=== PATIENT | female | born 1960 | race Caucasian/White ===

== ENCOUNTER 2017-11-11 23:03 | Emergency (ER) | payer MEDICAID ==
--- NOTE | 2017-11-12 00:38 | XRAY Report ---
EXAM: RIGHT HIP AND PELVIS RADIOGRAPHY EXAM DATE: 11/12/2017 12:24 AM. HISTORY: Fall, ecchymosis two days prior. COMPARISONS: None. TECHNIQUE: 1 view of the pelvis and 1 view of the hip. FINDINGS: Bones: Normal. No fracture or bone lesion. Joints: The bilateral hip, pubis symphysis, and sacroiliac joints are preserved. Soft Tissues: Normal. No soft tissue swelling. IMPRESSION: Normal pelvis and hip radiography. [facility] Referring Provider Line: [phone] SITE ID: [id number]
--- NOTE | 2017-11-12 00:57 | ED Physician Documentation ---
PD HPI LOWER EXT INJURY - Stated complaint Stated Complaint: RT HIP PX POST FALL - Chief complaint Chief Complaint: Trauma Ext - History obtained from History obtained from: Patient - History of Present Illness PD HPI LOW EXT INJURY LOCATION: Right, Hip Type of injury: Fall Where injury occurred: Home Timing - onset: How many days ago (2) Timing - details: Abrupt onset, Still present Improved by: Immobilization Worsened by: Moving, Palpating Similar symptoms before: No diagnosis Recently seen: Not recently seen - Additional information Additional information: Patient is a 57 year old female presenting to the emergency department for hip pain. patient states that she fell two days ago on her right hip. Patient states that there is a large bruise and the pain is persistent. Patient is trying to take care of her daughter who has had a tbi and has a broken ankle and helping her has become very difficult. Review of Systems Constitutional: denies: Fever, Chills Eyes: reports: Reviewed and negative Ears: reports: Reviewed and negative Nose: reports: Reviewed and negative Throat: reports: Reviewed and negative Cardiac: denies: Chest pain / pressure, Palpitations Respiratory: denies: Cough, Wheezing GI: denies: Nausea, Vomiting : reports: Reviewed and negative Skin: reports: Rash, Lesions Musculoskeletal: reports: Extremity pain, Joint pain, Extremity swelling, Joint swelling Neurologic: denies: Generalized weakness, Focal weakness, Numbness Psychiatric: reports: Depressed Immunocompromised: denies: Immunocompromised PD PAST MEDICAL HISTORY - Past Medical History Endocrine/Autoimmune: HyPOthyroidism 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 03/19/13 Nabumetone 750 mg PO BID 03/19/13 03/19/13 Oxycodone HCl/Acetaminophen 1 each PO QID 03/19/13 03/19/13 [Endocet 5-325 Tablet] Propranolol HCl 40 mg PO BID 03/19/13 03/19/13 Zolpidem Tartrate [Ambien] 10 mg PO HS 03/19/13 03/19/13 cephALEXin [Keflex] 500 mg PO Q6H #28 capsule 03/19/13 valACYclovir [Valtrex] 500 mg PO DAILY 03/19/13 03/19/13 - Allergies Allergies/Adverse Reactions: Allergies Allergy/AdvReac Type Severity Reaction Status Date / Time No Known Drug Allergies Allergy Verified 11/11/17 23:10 - Social History Does the pt smoke?: No Smoking Status: Never smoker Does the pt drink ETOH?: No Does the pt have substance abuse?: No - Immunizations Immunizations are current?: No - POLST Patient has POLST: No PD ED PE NORMAL - Vitals Vital signs reviewed: Yes - General General: Alert and oriented X 3, No acute distress - HEENT HEENT: Atraumatic, PERRL - Neck Neck: No bony TTP - Cardiac Cardiac: RRR - Respiratory Respiratory: No respiratory distress - Abdomen Abdomen: Non distended - Neuro Neuro: Alert and oriented X 3, No motor deficit, No sensory deficit, Normal speech PD ED PE EXPANDED - Derm Derm: Bruising (on right hip) - Extremities Extremities: Right hip (tenderness and ecchymosis of right hip) - Psych Psych: Tearful Results - Vitals Vitals: Vital Signs - 24 hr 11/11/17 11/12/17 23:10 01:22 Temperature 36.4 C L 36.4 C L Heart Rate 96 91 Respiratory 16 18 Rate Blood Pressure 157/92 H 152/88 H O2 Saturation 100 98 Oxygen O2 Source Room air - Rads (name of study) right hip x-ray Radiology: Final report received (no acute fracture or dislocation) PD MEDICAL DECISION MAKING - ED course Complexity details: reviewed old records, reviewed results, re-evaluated patient , considered differential, d/w patient ED course: Patient was seen and examined at bedside. Patient was sent for imaging. when patient returned the results were reviewed. there was no acute fracture or dislocation. patient was given ibuprofen for pain and crutches. patient required no further work up and was stable for discharge with outpatient follow up. Departure - Departure Disposition: Home, Self Care Clinical Impression: Contusion of hip, right Condition: Good Instructions: ED Contusion Hip Follow-Up: ROCHELLE VELÁZQUEZ ARNP [Primary Care Provider] - Within 3 Days Comments: Your diagnostics today were within normal limits. There is no acute fracture or dislocation. You can take motrin or tylenol as needed for pain and you should ice your wound. You should follow up with your doctor if your symptoms persist. You may return to the emergency department at any time for new, worsening or uncontrollable symptoms. Discharge Date/Time: 11/12/17 01:24
[2017-11-12 01:24] VITALS: BP 152/88
== END 2017-11-12 01:24 | disposition home or self-care (01) ==
LOC: ED 23:03
DX: S70.01XA Contusion of right hip, initial encounter (principal); W01.0XXA Fall on same level from slipping, tripping and stumbling without subsequent striking against object, initial encounter; Y92.019 Unspecified place in single-family (private) house as the place of occurrence of the external cause; E03.9 Hypothyroidism, unspecified; Z85.42 Personal history of malignant neoplasm of other parts of uterus
CPT/HCPCS: 99283

== ENCOUNTER 2018-11-23 14:23 | Outpatient (CLI) | payer MEDICAID ==
[2018-11-23 14:55] LABS: ALBUMIN 4.3 g/dL (3.2-5.5); ALBUMIN/GLOBULIN RATIO 1.3 (1.0-2.2); BILIRUBIN,TOTAL 1.1 mg/dL (0.2-1.0); CALCIUM 9.2 mg/dL (8.5-10.3); CREATININE 0.9 mg/dL (0.4-1.0); TOTAL PROTEIN 7.7 g/dL (6.7-8.2)
== END 2018-11-23 14:24 | disposition home or self-care (01) ==
LOC: LAB 14:23
PROVIDERS: ATTEND Nurse Practitioner Family
DX: E03.9 Hypothyroidism, unspecified (principal); I10 Essential (primary) hypertension
CPT/HCPCS: 36415; 80050; 80053; 84443

== ENCOUNTER 2021-08-30 07:00 | Outpatient (CLI) | payer MEDICAID ==
[2021-08-30 19:16] LABS: THYROID STIMULATING HORMONE 0.24 uIU/mL (0.34-5.60)
[2021-08-30 20:04] LABS: FREE T4 (FREE THYROXINE) 1.1 ng/dL (0.58-1.64)
== END 2021-08-30 23:59 | disposition home or self-care (01) ==
LOC: LAB 07:00
PROVIDERS: ATTEND Internal Medicine
DX: E03.9 Hypothyroidism, unspecified (principal)
CPT/HCPCS: 36415; 84439; 84443

== ENCOUNTER 2022-08-09 14:59 | Emergency (ER) | payer MEDICAID ==
--- NOTE | 2022-08-09 16:15 | XRAY Report ---
PROCEDURE: Knee 4 View RT INDICATIONS: Trauma TECHNIQUE: 3 views of the right knee(s) were acquired. COMPARISON: None. FINDINGS: Bones: Degenerative changes are present at the knee. There is a slight asymmetric depressed appearan ce of the lateral tibial plateau. No suspicious bony lesions. Soft tissues: Moderate joint effusion. No suspicious soft tissue calcifications. IMPRESSION: Moderate effusion with slight asymmetric depressed appearance of the lateral tibial plateau. This cou ld be degenerative in nature related to old injury. However, if this area demonstrates point tenderne ss, fracture cannot be excluded and CT is recommended. Reviewed by: Yu Nam MD on 08/09/2022 4:14 PM PDT Approved by: Yu Nam MD on 08/09/2022 4:14 PM PDT Station ID: [id number]
--- NOTE | 2022-08-09 16:16 | XRAY Report ---
PROCEDURE: Wrist 4 View RT INDICATIONS: Trauma TECHNIQUE: 4 views of the wrist were acquired. COMPARISON: None FINDINGS: Bones: No fractures or dislocations. No suspicious bony lesions. Scaphoid view: Scaphoid is intact. Soft tissues: No suspicious soft tissue calcifications. IMPRESSION: No fracture. No acute osseous lesion. If symptoms and/or clinical concern for pathology persists, fur ther assessment with repeat plain film radiographs (7-10 days) or advanced imaging (CT, MR, bone scan ) should be considered. Reviewed by: Azeb Laughlin MD, PhD on 08/09/2022 4:14 PM PDT Approved by: Azeb Laughlin MD, PhD on 08/09/2022 4:14 PM PDT Station ID: [id number]
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
[2022-08-09] MEDS ORDERED: oxyCODONE 5 MG TABLET PO STA (17:32)
[2022-08-09] MEDS ORDERED: KETOROLAC 15 MG/ML VIAL IVP STA (17:32)
[2022-08-09] MEDS ORDERED: KETOROLAC 30 MG/ML VIAL IM STA (17:44)
--- NOTE | 2022-08-09 19:09 | CT Report ---
PROCEDURE: LOWER EXTREMITY WO - RT INDICATIONS: knee pain post fall, tibial plateau fx. TECHNIQUE: Noncontrast 3-mm axial sections acquired from the distal tibial shaft to the talar dome, with coronal and sagittal reformats. For radiation dose reduction, the following was used: automated exposure c ontrol, adjustment of mA and/or kV according to patient size. COMPARISON: Same day right knee radiographs. FINDINGS: Image quality: Excellent. Bones: Depressed comminuted lateral tibial plateau fracture, (). No additional fracture. No disl ocation. There is tricompartmental osteophytosis. There is joint space narrowing most pronounced in t he medial compartment. Soft tissues: Suprapatellar joint effusion with lipohemarthrosis. Impression: Lateral tibial plateau fracture, type III. Reviewed by: Brayan Friedman MD on 08/09/2022 7:08 PM PDT Approved by: Brayan Friedman MD on 08/09/2022 7:08 PM PDT Station ID: [id number]
[2022-08-09] MEDS ORDERED: HYDROmorphone 1 MG/ML CARPUJECT IM STA ×2 (19:24→23:51)
[2022-08-10] MEDS ORDERED: HYDROmorphone 1 MG/ML CARPUJECT IM STA (04:37)
[2022-08-10] MEDS ORDERED: NAPROXEN 250 MG TABLET PO SCH (08:00)
[2022-08-10] MEDS: oxyCODONE 5 MG TABLET PO SCH ×4 (08:05→19:20)
[2022-08-10] MEDS: ACETAMINOPHEN 500 MG TABLET PO SCH ×4 (08:05→22:38)
--- NOTE | 2022-08-10 16:04 | ED Physician Documentation ---
ED Addendum - Addendum Addendum: 08/10/22 16:02 The patient did have difficulty with getting to the bathroom and needed assistance for balance and transfer. She was somewhat resistant for use of the crutches. Our social security specialist Louise talked with her to discuss options on prison. 1 would be attempted at home nursing but the patient states her physical layout of the house is difficult with bedroom upstairs in a bathroom downstairs. No friends or family in the area apparently. However the patient states she does not have the money available to pay for prison placement such as [facility]. The patient does have Medicaid and [facility] is looking at it as whether they could have short-term funding through the insurance. Social work is awaiting word back from the SNF to see if they might accept her short-term. Meanwhile we will have a physical therapy evaluation and see if they can help with coaching/teaching on crutches use.
[2022-08-10 18:04] LABS: BASOPHILS # (AUTO) 0.1 10^3/uL (0.0-0.1); BASOPHILS % (AUTO) 1.1 %; EOSINOPHILS # (AUTO) 0.3 10^3/uL (0.0-0.7); EOSINOPHILS % (AUTO) 4.5 %; HCT - HEMATOCRIT 26.3 % (37.0-47.0); LYMPHOCYTES # (AUTO) 1.4 10^3/uL (1.5-3.5); LYMPHOCYTES % (AUTO) 19.6 %; MEAN CORPUSCULAR HEMOGLOBIN 19.3 pg (27.0-31.0); MEAN CORPUSCULAR HGB CONC 26.6 g/dL (32.0-36.0); MEAN CORPUSCULAR VOLUME 72.7 fL (81.0-99.0); MEAN PLATELET VOLUME 9.8 fL (7.9-10.8); MONOCYTES # (AUTO) 0.6 10^3/uL (0.0-1.0); MONOCYTES % (AUTO) 7.9 %; NEUTROPHILS # (AUTO) 4.9 10^3/uL (1.5-6.6); NEUTROPHILS % (AUTO) 66.8 %; PLT - PLATELET COUNT 288 10^3/uL (130-450); RED BLOOD COUNT 3.62 10^6/uL (4.20-5.40); RED CELL DISTRIBUTION WIDTH 19.3 % (12.0-15.0); WHITE BLOOD COUNT 7.3 x10^3/uL (4.8-10.8)
[2022-08-10] MEDS ORDERED: FERROUS GLUCONATE 324 MG TABLET PO STA (18:10)
[2022-08-10 18:17] LABS: ALBUMIN/GLOBULIN RATIO 1.3 (1.0-2.2); BILIRUBIN,TOTAL 0.6 mg/dL (0.2-1.0); CALCIUM 8.9 mg/dL (8.5-10.3); CREATININE 0.8 mg/dL (0.4-1.0); POTASSIUM 3.7 mmol/L (3.5-5.0)
[2022-08-10 18:32] LABS: % IRON SATURATION 2 % (20-50); IRON 11 ug/dL (28-170); TOTAL IRON BINDING CAPACITY 486 ug/dL (250-450); TRANSFERRIN 347 mg/dL (192-382)
[2022-08-10 18:33] LABS: PLATELET ESTIMATE, MANUAL NORMAL (130-450,000) (NORMAL); PLATELET MORPHOLOGY NORMAL APPEARANCE (NORMAL); SLIDE REVIEW? Indicated
[2022-08-11] MEDS: oxyCODONE 5 MG TABLET PO SCH ×6 (00:11→20:08)
[2022-08-11 07:17] LABS: BASOPHILS # (AUTO) 0.1 10^3/uL (0.0-0.1); BASOPHILS % (AUTO) 1.1 %; EOSINOPHILS # (AUTO) 0.4 10^3/uL (0.0-0.7); EOSINOPHILS % (AUTO) 6.9 %; HCT - HEMATOCRIT 25.6 % (37.0-47.0); LYMPHOCYTES # (AUTO) 1.5 10^3/uL (1.5-3.5); LYMPHOCYTES % (AUTO) 24.6 %; MEAN CORPUSCULAR HEMOGLOBIN 19.4 pg (27.0-31.0); MEAN CORPUSCULAR HGB CONC 26.6 g/dL (32.0-36.0); MEAN CORPUSCULAR VOLUME 72.9 fL (81.0-99.0); MEAN PLATELET VOLUME 10.1 fL (7.9-10.8); MONOCYTES # (AUTO) 0.5 10^3/uL (0.0-1.0); MONOCYTES % (AUTO) 7.9 %; NEUTROPHILS # (AUTO) 3.7 10^3/uL (1.5-6.6); PLT - PLATELET COUNT 272 10^3/uL (130-450); RED BLOOD COUNT 3.51 10^6/uL (4.20-5.40); RED CELL DISTRIBUTION WIDTH 19.3 % (12.0-15.0); WHITE BLOOD COUNT 6.2 x10^3/uL (4.8-10.8)
[2022-08-11 07:24] LABS: HGB - HEMOGLOBIN 6.8 g/dL (12.0-16.0)
[2022-08-11] MEDS ORDERED: FERROUS GLUCONATE 324 MG TABLET PO SCH (08:00)
[2022-08-11] MEDS: ACETAMINOPHEN 500 MG TABLET PO SCH ×4 (10:16→20:30)
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
[2022-08-11 21:19] LABS: HCT - HEMATOCRIT 31.7 % (37.0-47.0); HGB - HEMOGLOBIN 8.8 g/dL (12.0-16.0)
--- NOTE | 2022-08-12 02:23 | ED Physician Documentation ---
ED Addendum - Addendum Addendum: 08/12/22 02:20 The patient is appearing rested and sleeping here on the overnight shift. She had received a transfusion earlier for apparent iron deficiency anemia. She has not had any stools out and no gross melena by her history. We will still obtain a guaiac and encouraged her to have a bowel movement. Deferred rectal exam at this time. Social work note states her primary insurance had declined rehab care and they are approaching Medicaid to see if that would cover. Social work had not heard back from the [facility] SN[facility] at the time they left this past afternoon. Presumably will help hear back this coming morning. If Medicaid declines her for rehab/acute SNF care, then we really need to look at discharge with crutches and/or walker. At this point it is an isolated tibial plateau fracture that is unlikely to need surgical repair but will need 4 to 6 weeks in a knee brace and crutches versus walker. She will need to maneuver with this at home. Pain medications are being provided.
[2022-08-12] MEDS: oxyCODONE 5 MG TABLET PO PRN ×2 (02:49→08:51)
[2022-08-12 03:25] VITALS: BP 201/77
[2022-08-12] MEDS: ACETAMINOPHEN 500 MG TABLET PO SCH ×2 (08:51→13:45)
[2022-08-12] MEDS: NAPROXEN 250 MG TABLET PO SCH ×2 (08:51→08:59)
== END 2022-08-12 13:39 | disposition home or self-care (01) ==
LOC: EEVIPCON 14:59 → ED 14:59
DX: S82.141A Displaced bicondylar fracture of right tibia, initial encounter for closed fracture (principal); S63.501A Unspecified sprain of right wrist, initial encounter; V18.0XXA Pedal cycle driver injured in noncollision transport accident in nontraffic accident, initial encounter; Y93.55 Activity, bike riding
CPT/HCPCS: 36415; 73110; 73564; 73700; 80053; 83540; 83690; 83735; 84443; 84466; 85014; 85018; 85025; 86850; 86900; 86901; 86920; 96372; 99284; 99285; A9270; J1170; P9016